=== PATIENT | female | born 1995 | race African-American/Black ===

== ENCOUNTER 2021-01-10 14:19 | Emergency (ER) | payer SELFPAY ==
[2021-01-10] MEDS ORDERED: Ketorolac Tromethamine 30 MG/ML VIAL ONE (14:44)
== END 2021-01-10 15:08 | disposition home or self-care (01) ==
LOC: CSHERS 14:19
DX: K02.9 Dental caries, unspecified (principal); K03.81 Cracked tooth
CPT/HCPCS: 96372; 99282; J1885